=== PATIENT | female | born 1985 | race African-American/Black ===

== ENCOUNTER 2016-12-02 18:12 | Emergency (ER) | payer MEDICAID | END 2016-12-02 19:44 | disposition home or self-care (01) | LOC: D.ER 18:12 | DX: J20.9 Acute bronchitis, unspecified (principal); F17.200 Nicotine dependence, unspecified, uncomplicated; R09.89 Other specified symptoms and signs involving the circulatory and respiratory systems; R05 Cough ==

== ENCOUNTER 2017-07-28 05:15 | Emergency (ER) | payer MEDICAID ==
[2017-07-28 06:24] LABS: BASOPHILS 0.4 % (0-2); EOSINOPHILS 2.4 % (0-7); HEMOGLOBIN 12.7 g/dL (12-16); IMMATURE GRANULOCYTES 0.3 % (0-5); LYMPHOCYTES 35.9 % (15-50); MCH 29.9 pg (26.0-34.0); MCHC 34.3 g/dL (31.0-37.0); MCV 87.1 fL (80.0-100.0); MEAN PLATELET VOLUME 8.7 fL (7.4-10.4); MONOCYTES 5.5 % (2-11); NEUTROPHILS 55.5 % (40-80); PLATELET COUNT 367 10x3/uL (130-400); RBC 4.25 10x6/uL (4.00-5.40); RDW 13.6 % (11.5-14.5)
[2017-07-28 06:38] LABS: HCG SERUM NEGATIVE (NEGATIVE)
[2017-07-28 06:47] LABS: ALBUMIN 3.4 g/dL (3.4-5.0); ALKALINE PHOSPHATASE 74 U/L (46-116); ALT (SGPT) 26 U/L (10-68); AMYLASE - SERUM 61 U/L (25-115); CALC OSMOLALITY 275 mosm/kg (275-300); CALCIUM 8.6 mg/dL (8.5-10.1); CARBON DIOXIDE 23.9 mmol/L (21.0-32.0); CHLORIDE - SERUM 105 mmol/L (98-107); CREATININE - SERUM 0.8 mg/dL (0.6-1.3); GLUCOSE 102 mg/dL (74-106); LIPASE 108 U/L (73-393); MAGNESIUM - SERUM 1.8 mg/dL (1.8-2.4); POTASSIUM - SERUM 3.4 mmol/L (3.5-5.1); PROTEIN - SERUM 7.5 g/dL (6.4-8.2); SODIUM 140 mmol/L (136-145); UREA NITROGEN 5 mg/dL (7-18); eGFR NON AFRICAN AMERICAN 89 mL/min (90-120)
[2017-07-28 06:59] LABS: APPEARANCE CLOUDY (CLEAR); BACTERIA FEW /hpf (NONE SEEN); BILIRUBIN NEGATIVE (NEGATIVE); COLOR RED (YELLOW); EPITHELIAL CELLS 0-5 /hpf (0-5); GLUCOSE NEGATIVE (NEGATIVE); KETONE NEGATIVE (NEGATIVE); NITRITE NEGATIVE (NEGATIVE); PROTEIN 1+ mg/dL (NEGATIVE); RED CELLS - URINE >50 /hpf (0-5); UROBILINOGEN NORMAL (NORMAL); WHITE CELLS - URINE 0-5 /hpf (0-5)
[2017-07-28 07:00] LABS: MUCUS <1+ /lpf (NONE SEEN)
== END 2017-07-28 08:27 | disposition home or self-care (01) ==
LOC: D.ER 05:15
PROVIDERS: Emergency Medicine
DX: R10.9 Unspecified abdominal pain (principal); F17.200 Nicotine dependence, unspecified, uncomplicated

== ENCOUNTER 2017-11-19 10:02 | Emergency (ER) | payer MEDICAID ==
[~2017-11-19] VITALS: Ht 185.4 cm; Wt 134.1 kg
[2017-11-19 10:05] VITALS: Ht 185.4 cm; Wt 134.1 kg
[2017-11-19] MEDS ORDERED: MIRALAX527 GM PO (10:31)
[2017-11-19] MEDS ORDERED: ROBAXIN500 MG PO (10:31)
[2017-11-19] MEDS ORDERED: ULTRAM50 MG PO (10:31)
[2017-11-19 10:56] VITALS: BP 132/99
== END 2017-11-19 10:57 | disposition home or self-care (01) ==
LOC: D.ER 10:02
DX: M62.08 Separation of muscle (nontraumatic), other site (principal)

== ENCOUNTER 2018-01-28 16:21 | Emergency (ER) | payer MEDICAID ==
[~2018-01-28] VITALS: Ht 185.4 cm; Wt 131.8 kg
[~2018-01-28 16:21] MED LIST: MIRALAX527 GM PO; ROBAXIN500 MG PO; ULTRAM50 MG PO
[2018-01-28 16:23] VITALS: Ht 185.4 cm; Wt 131.8 kg
[2018-01-28 16:48] LABS: BASOPHILS 0.2 % (0-2); HEMATOCRIT 36.2 % (36.0-48.0); HEMOGLOBIN 12.2 g/dL (12-16); IMMATURE GRANULOCYTES 0.2 % (0-5); LYMPHOCYTES 22.9 % (15-50); MCH 29.3 pg (26.0-34.0); MCHC 33.7 g/dL (31.0-37.0); MEAN PLATELET VOLUME 8.6 fL (7.4-10.4); MONOCYTES 5.8 % (2-11); NEUTROPHILS 66.9 % (40-80); PLATELET COUNT 375 10x3/uL (130-400); RBC 4.16 10x6/uL (4.00-5.40); RDW 14.1 % (11.5-14.5)
[2018-01-28 17:05] LABS: ALBUMIN 3.3 g/dL (3.4-5.0); ALKALINE PHOSPHATASE 71 U/L (46-116); ALT (SGPT) 20 U/L (10-68); BILIRUBIN - TOTAL 0.19 mg/dL (0.2-1.3); CALC OSMOLALITY 277 mosm/kg (275-300); CALCIUM 8.8 mg/dL (8.5-10.1); CARBON DIOXIDE 25.2 mmol/L (21.0-32.0); CHLORIDE - SERUM 106 mmol/L (98-107); CREATININE - SERUM 0.8 mg/dL (0.6-1.3); GLUCOSE 91 mg/dL (74-106); POTASSIUM - SERUM 3.5 mmol/L (3.5-5.1); PROTEIN - SERUM 7.7 g/dL (6.4-8.2); SODIUM 141 mmol/L (136-145); UREA NITROGEN 4 mg/dL (7-18); eGFR NON AFRICAN AMERICAN 89 mL/min (90-120)
[2018-01-28] MEDS ORDERED: VIBRAMYCIN 100100 MG PO (17:08)
[2018-01-28] MEDS ORDERED: VENTOLIN HFA18 GM INH (17:08)
[2018-01-28] MEDS ORDERED: PHENERGAN DM SYR5 ML PO (17:08)
[2018-01-28 17:23] VITALS: BP 122/30
== END 2018-01-28 17:24 | disposition home or self-care (01) ==
LOC: D.ER 16:21
PROVIDERS: Emergency Medicine
DX: J20.9 Acute bronchitis, unspecified (principal); R11.2 Nausea with vomiting, unspecified; R09.89 Other specified symptoms and signs involving the circulatory and respiratory systems; F17.200 Nicotine dependence, unspecified, uncomplicated

== ENCOUNTER 2019-05-22 05:47 | Emergency (ER) | payer SELFPAY ==
[~2019-05-22] VITALS: Ht 185.4 cm; Wt 127.3 kg
[~2019-05-22 05:47] MED LIST changes: +PHENERGAN DM SYR5 ML PO; +VENTOLIN HFA18 GM INH; +VIBRAMYCIN 100100 MG PO
[2019-05-22 05:53] VITALS: Ht 185.4 cm; Wt 127.3 kg
[2019-05-22] MEDS ORDERED: GUAIFEN-CODEINE10 ML PO (06:19)
[2019-05-22] MEDS ORDERED: ZITHROMAX500 MG PO (06:19)
[2019-05-22] MEDS ORDERED: TAMIFLU75 MG PO (06:22)
[2019-05-22 06:28] LABS: HCG SERUM NEGATIVE (NEGATIVE)
[2019-05-22 06:31] LABS: CALC OSMOLALITY 274 mosm/kg (275-300); CALCIUM 8.8 mg/dL (8.5-10.1); CARBON DIOXIDE 23.7 mmol/L (21.0-32.0); CHLORIDE - SERUM 106 mmol/L (98-107); CREATININE - SERUM 0.8 mg/dL (0.6-1.3); GLUCOSE 83 mg/dL (74-106); POTASSIUM - SERUM 3.4 mmol/L (3.5-5.1); SODIUM 139 mmol/L (136-145); UREA NITROGEN 6 mg/dL (7-18); eGFR NON AFRICAN AMERICAN 87 mL/min (90-120)
[2019-05-22 06:32] LABS: BASOPHILS 0.6 % (0-2); HEMATOCRIT 34.6 % (36.0-48.0); HEMOGLOBIN 11.5 g/dL (12-16); IMMATURE GRANULOCYTES 0.2 % (0-5); LYMPHOCYTES 34.8 % (15-50); MCH 28.9 pg (26.0-34.0); MCHC 33.2 g/dL (31.0-37.0); MCV 86.9 fL (80.0-100.0); MONOCYTES 8.7 % (2-11); NEUTROPHILS 53.7 % (40-80); PLATELET COUNT 308 10x3/uL (130-400); RBC 3.98 10x6/uL (4.00-5.40); RDW 14.3 % (11.5-14.5)
[2019-05-22 06:36] LABS: APTT 31.8 SECONDS (22.8-39.4); INR 1.07 (0.85-1.17); PROTIME 13.8 SECONDS (11.6-15.0)
[2019-05-22 06:48] LABS: ALBUMIN 3.4 g/dL (3.4-5.0); ALKALINE PHOSPHATASE 53 U/L (30-120); ALT (SGPT) 23 U/L (10-68); BILIRUBIN - TOTAL 0.17 mg/dL (0.2-1.3); CKMB 0.5 U/L (0.0-3.6); CREATINE KINASE 226 UL (21-215); PROTEIN - SERUM 7.6 g/dL (6.4-8.2)
[2019-05-22 06:49] LABS: TROPONIN-I < 0.017 ng/mL (0.000-0.060)
[2019-05-22 07:10] VITALS: BP 142/87
== END 2019-05-22 07:10 | disposition home or self-care (01) ==
LOC: D.ER 05:47
PROVIDERS: Emergency Medicine
DX: J10.1 Influenza due to other identified influenza virus with other respiratory manifestations (principal); R11.0 Nausea; M54.2 Cervicalgia; R07.89 Other chest pain; Z72.0 Tobacco use